=== PATIENT | female | born 1960 | race Caucasian/White ===

== ENCOUNTER 2021-04-30 08:19 | Outpatient (REF) | payer OTHER, SELFPAY ==
[2021-04-30 11:03] LABS: MANUAL DIFF FLAG NO
[2021-04-30 11:06] LABS: Basophils Percent Auto 0.6 % (0-2); Eosinophils Absolute Auto 0.1 X10*3/uL (0.0-0.4); Eosinophils Percent Auto 2.6 % (0-4); Hemoglobin 13.1 g/dl (12.0-16.0); Imm Gran Abs Auto 0.01 X10*3/uL (0.00-0.03); Imm Gran Pct Auto 0.2 % (0.0-0.4); Lymphocytes Absolute Auto 1.8 X10*3/uL (1.2-4.9); Lymphocytes Percent Auto 35.3 % (20-40); Mean Corpuscular HGB Conc 34.5 g/dl (31.0-35.0); Mean Corpuscular Hemoglobin 30.1 pg (27.0-33.0); Mean Corpuscular Volume 87.4 fL (80-98); Mean Platelet Volume 10.4 fL (9.4-12.3); Monocytes Absolute Auto 0.5 X10*3/uL (0.1-1.2); Monocytes Percent Auto 9.2 % (2-11); Neutrophils Absolute Auto 2.6 X10*3/uL (2.0-8.3); Neutrophils Percent Auto 52.1 % (45-73); Platelet Count 220 X10*3/uL (160-400); Red Blood Count 4.35 X10*6/uL (4.20-5.50); Red Cell Distribution Width 12.3 % (11.0-16.0)
[2021-04-30 11:57] LABS: Alanine Aminotransferase 20 U/L (0-31); Albumin Level 4.2 g/dL (3.5-5.0); Alkaline Phosphatase 71 U/L (39-117); Anion Gap 11 (12-20); Aspartate Amino Transferase 17 U/L (5-31); Bilirubin Total 0.7 mg/dL (0.0-1.0); Blood Urea Nitrogen 12 mg/dL (9-16); Carbon Dioxide 28 mmol/L (22-29); Chloride 104 mmol/L (96-108); Cholesterol 235 mg/dL; Estimated Glomerular Filt Rate > 60; Glucose Fasting 89 mg/dL (60-99); HDL Cholesterol 80 mg/dL; LDL Cholesterol Calculated 143 mg/dl; Potassium 3.9 mmol/L (3.3-5.1); Sodium 139 mmol/L (135-145); Total Protein 6.1 g/dL (6.5-8.0); Triglycerides 63 mg/dL
[2021-04-30 12:21] LABS: Thyroid Stimulating Hormone 1.38 uIU/mL (0.32-4.0); Vitamin D 25-OH Total 56.6 ng/mL (>30)
== END 2021-04-30 08:20 | disposition home or self-care (01) ==
LOC: HO.MANLDS 08:19
PROVIDERS: PCP Internal Medicine; Visit Provider Internal Medicine
DX: Z00.00 Encounter for general adult medical examination without abnormal findings (principal)
CPT/HCPCS: 36415; 80053; 80061; 82306; 84443; 85025

== ENCOUNTER 2022-08-21 08:43 | Outpatient (REF) | payer OTHER, SELFPAY ==
[2022-08-21 11:11] LABS: MANUAL DIFF FLAG NO
[2022-08-21 11:28] LABS: Basophils Percent Auto 0.6 % (0-2); Eosinophils Absolute Auto 0.2 X10*3/uL (0.0-0.4); Eosinophils Percent Auto 3.2 % (0-4); Hematocrit 37.2 % (37.0-47.0); Hemoglobin 12.9 g/dl (12.0-16.0); Imm Gran Abs Auto 0.01 X10*3/uL (0.00-0.03); Imm Gran Pct Auto 0.2 % (0.0-0.4); Lymphocytes Absolute Auto 1.7 X10*3/uL (1.2-4.9); Mean Corpuscular HGB Conc 34.7 g/dl (31.0-35.0); Mean Corpuscular Hemoglobin 29.4 pg (27.0-33.0); Mean Corpuscular Volume 84.7 fL (80.0-98.0); Monocytes Absolute Auto 0.5 X10*3/uL (0.1-1.2); Monocytes Percent Auto 10.4 % (2-11); Neutrophils Absolute Auto 2.3 x10*3/uL (2.0-8.3); Neutrophils Percent Auto 48.6 % (45-73); Platelet Count 267 X10*3/uL (160-400); Red Blood Count 4.39 X10*6/uL (4.20-5.50); Red Cell Distribution Width 11.9 % (11.0-16.0); White Blood Count 4.7 X10*3/uL (4.8-10.8)
[2022-08-21 11:53] LABS: Alanine Aminotransferase 20 U/L (0-31); Albumin Level 4.2 g/dL (3.5-5.0); Alkaline Phosphatase 68 U/L (39-117); Anion Gap 15 (12-20); Aspartate Amino Transferase 17 U/L (5-31); Bilirubin Total 0.4 mg/dL (0.0-1.0); Blood Urea Nitrogen 10 mg/dL (9-16); Calcium 9.4 mg/dL (8.4-10.2); Carbon Dioxide 27 mmol/L (22-29); Chloride 100 mmol/L (96-108); Cholesterol 227 mg/dL; Estimated Glomerular Filt Rate > 60; Glucose Random 92 mg/dL (60-115); HDL Cholesterol 66 mg/dL; LDL Cholesterol Calculated 147 mg/dl; Sodium 138 mmol/L (135-145); Total Protein 6.8 g/dL (6.5-8.0); Triglycerides 73 mg/dL
[2022-08-21 12:00] LABS: Thyroid Stimulating Hormone 1.45 uIU/mL (0.32-4.0)
[2022-08-21 12:03] LABS: Ferritin 212 ng/mL (10-250); T4 Thyroxine 7.6 ug/dL (4.5-12.0)
== END 2022-08-21 08:44 | disposition home or self-care (01) ==
LOC: HO.MANLDS 08:43
PROVIDERS: Dermatology; Visit Provider Internal Medicine
DX: D22.9 Melanocytic nevi, unspecified (principal); L65.0 Telogen effluvium; L21.8 Other seborrheic dermatitis; K13.0 Diseases of lips; L82.1 Other seborrheic keratosis
CPT/HCPCS: 36415; 80053; 80061; 82306; 82728; 84436; 84443; 85025

== ENCOUNTER 2022-08-28 15:14 | Outpatient (REF) | payer OTHER, SELFPAY ==
[2022-08-28 18:25] LABS: Alanine Aminotransferase 19 U/L (0-31); Albumin Level 4.4 g/dL (3.5-5.0); Alkaline Phosphatase 76 U/L (39-117); Amylase 66 U/L (28-100); Anion Gap 17 (12-20); Aspartate Amino Transferase 19 U/L (5-31); Bilirubin Total 0.4 mg/dL (0.0-1.0); Blood Urea Nitrogen 10 mg/dL (9-16); C Reactive Protein 0.41 mg/dL (< or = 0.50); Calcium 9.8 mg/dL (8.4-10.2); Carbon Dioxide 26 mmol/L (22-29); Chloride 99 mmol/L (96-108); Estimated Glomerular Filt Rate > 60; Gamma Glutamyl Transpeptidase 22 U/L (7-33); Glucose Random 82 mg/dL (60-115); Lipase 26 U/L (8-78); Potassium 3.8 mmol/L (3.3-5.1); Sodium 138 mmol/L (135-145); Total Protein 7.1 g/dL (6.5-8.0)
[2022-08-28 18:53] LABS: Erythrocyte Sedimentation Rate 18 MM/HR (0-20)
== END 2022-08-28 15:15 | disposition home or self-care (01) ==
LOC: HO.MANLDS 15:14
PROVIDERS: Visit Provider Physician Assistant
DX: R10.0 Acute abdomen (principal)
CPT/HCPCS: 36415; 80053; 82150; 82977; 83690; 85652; 86140

== ENCOUNTER 2024-03-08 08:44 | Outpatient (REF) | payer OTHER, SELFPAY ==
[2024-03-08 13:15] LABS: MANUAL DIFF FLAG NO
[2024-03-08 13:51] LABS: Basophils Percent Auto 0.4 % (0-2); Eosinophils Percent Auto 0.1 % (0-4); Hematocrit 39.2 % (37.0-47.0); Hemoglobin 13.6 g/dl (12.0-16.0); Imm Gran Abs Auto 0.03 X10*3/uL (0.00-0.03); Imm Gran Pct Auto 0.4 % (0.0-0.4); Lymphocytes Absolute Auto 1.3 X10*3/uL (1.2-4.9); Lymphocytes Percent Auto 16.6 % (20-40); Mean Corpuscular HGB Conc 34.7 g/dl (31.0-35.0); Mean Corpuscular Hemoglobin 29.8 pg (27.0-33.0); Mean Platelet Volume 10.2 fL (9.4-12.3); Monocytes Absolute Auto 0.4 X10*3/uL (0.1-1.2); Monocytes Percent Auto 5.4 % (2-11); Neutrophils Absolute Auto 6.2 x10*3/uL (2.0-8.3); Neutrophils Percent Auto 77.1 % (45-73); Platelet Count 260 X10*3/uL (160-400); Red Blood Count 4.56 X10*6/uL (4.20-5.50); Red Cell Distribution Width 12.6 % (11.0-16.0); White Blood Count 8.1 X10*3/uL (4.8-10.8)
[2024-03-08 14:09] LABS: Alanine Aminotransferase 23 U/L (0-31); Albumin Level 4.3 g/dL (3.5-5.0); Alkaline Phosphatase 70 U/L (39-117); Anion Gap 12 (12-20); Aspartate Amino Transferase 18 U/L (5-31); Bilirubin Total 0.3 mg/dL (0.0-1.0); Blood Urea Nitrogen 18 mg/dL (9-16); Calcium 9.6 mg/dL (8.4-10.2); Carbon Dioxide 27 mmol/L (22-29); Chloride 102 mmol/L (96-108); Cholesterol 245 mg/dL (<200); Estimated Glomerular Filt Rate > 60; Glucose Random 94 mg/dL (60-115); HDL Cholesterol 80 mg/dL (>40); LDL Cholesterol Calculated 153 mg/dL (<100); Potassium 3.9 mmol/L (3.3-5.1); Sodium 137 mmol/L (135-145); Total Protein 7.5 g/dL (6.5-8.0); Triglycerides 61 mg/dL (<150)
[2024-03-08 14:26] LABS: Vitamin D 25-OH Total 77.2 ng/mL (>30)
== END 2024-03-08 08:45 | disposition home or self-care (01) ==
LOC: HO.MANLDS 08:44
PROVIDERS: Visit Provider Physician Assistant
DX: Z00.00 Encounter for general adult medical examination without abnormal findings (principal); Z13.6 Encounter for screening for cardiovascular disorders; E55.9 Vitamin D deficiency, unspecified
CPT/HCPCS: 36415; 80053; 80061; 82306; 85025

== ENCOUNTER 2025-10-08 08:40 | Outpatient (REF) | payer OTHER, SELFPAY ==
--- OUTSIDE RECORDS SUMMARY | 2025-10-08 09:02 | XMS_ITS | Encounter Summary ---
Author Organization [facility] Address [address] [place] [address] Phone Care Team Providers Care Street Car Mechanic Name Role Phone Marvin Henderson MD Unavailable [phone] Wilman Angel DO Primary Care Provider [phone] Encounter Details Date Type Department Care Team (Late st Contact Info) Description 07/11/2024 Procedure Pass [facility] Endoscopy Admitting Dept Virtual Department 30 [place] [address] Social History Tobacco Use Types Packs/Day Years Used Date Smoking Tobacco: Former Cigarettes Q uit: 02/10/1983 Smokeless Tobacco: Never Alcohol Use Standard Drinks/Week Comments Yes 0 (1 standard drink = 0.6 oz pur e alcohol) 1-2/week, hard cider at most Education Answer Date Recorded Are you interested in more education? Not on perico e 03/11/2023 Are you concerned about learning? Not on file 03/11/2023 No 03/11/2023 No 03/11/2023 Digital Access Answer Date Recorded No 04/11/2023 No 04/11/2023 Reliable internet access at home? Not on file 04/11/2023 Device with a working camera? Not on file Intimate Partner Violence Answer Date R ecorded Are you denied basic needs s uch as food, clothing, or medical care? No 07/11/2024 In the past 12 months have y ou been in a relationship with a person who hurts, threatens, or tries to control you? No 07/11/2024 Are you denied basic needs s uch as food, clothing, or medical care? No 07/11/2024 In the past 12 months have y ou been in a relationship with a person who hurts, threatens, or tries to control you? 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 It is not the complete legal health record.[facility]
--- OUTSIDE RECORDS SUMMARY | 2025-10-08 09:03 | XMS_ITS | Encounter Summary ---
Author Organization [facility] Address [address] [place] [address] [place] [address] Phone Care Team Providers Care Hand Stoner Name Role Phone Wilman Angel DO Unavailable Enzo Alfaro MD Unavailable Marvin Henderson MD Unavailable Irving Whiteside MD Unavailable Arlene Malik INVESTIGATION DIVISION SERGEANT Unavailable Enrico Nguyen MD Unavailable [phone] Boston Crabtree INVESTIGATION DIVISION SERGEANT Unavailable ChloeChel stout INVESTIGATION DIVISION SERGEANT Unavailable Trey Ruiz MD Unavailable Wilman Liang MD Unavailable [phone] Wilman Angel DO Primary Care Provider [phone] Encounter Details Date Type Department Care Team (Latest Contact Info) Description 02/28/2019 Transcribe Orders Virtual Department 30 [place] [address] Danita Nichols, SKYLER [address] [place], [place] [id number] Osteopenia, unspecified location (Primary Dx) Social History Tobacco Use Types Packs/Day Years Used Date Smoking Tobacco: Former Cigarettes Q uit: 02/10/1983 Smokeless Tobacco: Never Alcohol Use Standard Drinks/Week Comments Yes 0 (1 standard drink = 0.6 oz pur e alcohol) 1-2/week Comments Unknown Sex and Gender Information Value Date Recorded Sex Assigned at Female 04/25/2025 8:20 PM EDT Legal Sex Female 5:42 PM EST Gender Identity Female 04/25/2025 8:20 PM EDT Sexual Orientation Not on file documented as of this encounter Plan of Treatment Not on file documented as of this encounter Results * BD DXA AXIAL (SPINE) WITH HIP (05/10/2019 3:48 PM EDT) Anatomical Region Laterality Modality Bone Density Bone Density 05/10/2019 4:17 PM EDT Impressions 05/10/2019 4:20 PM EDT Osteopenia at all 3 measured sites POS -[id number] Narrative 05/10/2019 4:20 PM EDT This is a 59-year-old postmenopausal female who describes no perceived height loss. No history of steroid use, hormone therapy or calcium supplementation. This is our baseline exam. Evaluation of the lumbar spine and hips was performed and felt to be technically adequate. Total bone mineral density in the L1-L4 vertebral bodies was calculated at 0.906 gm/cm2 with a T score of -1.3, and a Z-score of 0.0. This falls within the WHO classification of osteopenia. Total bone mineral density in the right proximal femur was calculated at 0.813 gm/cm2 with a T-score of -1.1, and a Z-score of -0.8. This falls within the WHO classification of osteopenia. Total bone mineral density in the left proximal femur was calculated at 0.797 gm/cm2 with a T-score of -1.2, and a Z-score of -0.3. This falls within the WHO classification of osteopenia. Procedure Note Jignesh Brandt MD - 05/10/2019 This is a 59-year-old postmenopausal female who describes noperceived height loss. No history of steroid use, hormone therapy or calcium supplementation. This is our baseline exam. Evaluation of the lumbar spine and hips was performed and felt to betechnically adequate. Total bone mineral density in the L1-L4 vertebral bodies was calculated at0.906 gm/cm2 with a T score of -1.3, and a Z-score of 0.0. This fallswithin the WHO classification of osteopenia. Total bone mineral density in the right proximal femur was calculated at0.813 gm/cm2 with a T-score of -1.1, and a Z-score of -0.8. This fallswithin the WHO classification of osteopenia. Total bone mineral density in the left proximal femur was calculated at0.797 gm/cm2 with a T-score of -1.2, and a Z-score of -0.3. This fallswithin the WHO classification of osteopenia. IMPRESSION: Osteopenia at all 3 measured sites POS -[id number] Danita Nichols CEPHALOMETRIC TECHNICIAN IMG BD BONE DENSITY DEXA Fi nal Result documented in this encounter Visit Diagnoses Diagnosis Osteopenia, unspecified location- Primary Osteopenia, unspecified location documented in this encounter Care Teams Hand Stoner Relationship Specialty Start Date End Date Wilman Angel DO [address] [place] [address] PCP - General Internal Medicine 09/09/17 Wilman Angel DO [address] [place] [address] [email or web address] Historical LMR Provider 08/30/17 11/22/21 Enzo Alfaro MD [address] [place] [address] Historical LMR Provider 08/30/17 11/22/21 Marvin Henderson MD [address] [place] [address] Historical LMR Provider 08/30/17 Irving Whiteside MD [address] [address] [email or web address] Historical LMR Provider 08/30/17 11/22/21 Arlene Malik NP [address] [place] [address] [email or web address] Historical LMR Provider 08/30/17 2 Enrico Nguyen MD [address] [address] [email or web address] Historical LMR Provider 08/30/17 11/22/21 Boston Crabtree NP [address] [place] [phone] Historical LMR Provider 08/30/17 2 Chel Jimenez NP [address] [place] [address] Historical LMR Provider 08/30/17 2 Trey Ruiz MD [address] [place] [address] Historical LMR Provider 08/30/17 2 Wilman Liang MD [address] [place] [address] [email or web address] Historical LMR Provider 08/30/17 11/22/21 documented as of this encounter Additional Source Comments The information contained in this document represents components of the legal health record. It is not the complete legal health record.[facility]
--- OUTSIDE RECORDS SUMMARY | 2025-10-08 09:03 | XMS_ITS | Encounter Summary ---
Author Organization [facility] Address [address] [place] [address] Phone Care Team Providers Care Hydraulic Punch Press Operator Name Role Phone Marvin Henderson MD Unavailable [phone] Wilman Angel DO Primary Care Provider Encounter Details Date Type Department Care Team (Late st Contact Info) Description 09/27/2024 Ancillary Orders [facility], X-Ray - [address] [address] Nicky Godoy PA [address] [facility] [place] [address] [place] [address] Acute bronchitis, unspecified organism (Primary Dx) Social History Tobacco Use Types [...] 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 In particular, no evidence of pneumonia. Narrative 09/27/2024 11:37 AM EST XR CHEST PA AND LATERAL 2 VIEWS Referring clinician's provided indication for this examination in [facility]: Cough COMPARISON: Similar studies are unavailable for comparison at this time. FINDINGS: Devices/Tubes/Lines: Loop recorder. Reported mastectomy with reconstruction, surgical clips. Upper abdominal surgical clips. Lungs: Normal. The lungs are clear. No focal consolidation or pulmonary edema. Pleura: Normal. No pleural effusion or pneumothorax. Heart/Mediastinum: Normal heart and mediastinum. Bones/Soft Tissues: Normal. No significant skeletal abnormality. Procedure Note Connie Trejo MD - 09/27/2024 XR CHEST PA AND LATERAL 2 VIEWS Referring clinician's provided indication for this examination in [facility]:Cough COMPARISON: Similar studies are unavailable for comparison at this time. FINDINGS: Devices/Tubes/Lines: Loop recorder. Reported mastectomy withreconstruction, surgical clips. Upper abdominal surgical clips. Lungs: Normal. The lungs are clear. No focal consolidation or pulmonaryedema. Pleura: Normal. No pleural effusion or pneumothorax. Heart/Mediastinum: Normal heart and mediastinum. Bones/Soft Tissues: Normal. No significant skeletal abnormality. IMPRESSION: No acute cardiopulmonary abnormality. In particular, no evidence ofpneumonia. Nicky FERNANDEZ IMG XR CHEST Final Resul t documented in this encounter Visit Diagnoses Diagnosis Acute bronchitis, unspecified organism- Primary Acute bronchitis, unspecified organism documented in this encounter Care Teams Hydraulic Punch Press Operator Relationship Specialty Start Date End Date Wilman Angel DO [address] [place] [address] PCP - General Internal Medicine 09/09/17 Marvin Henderson MD [address] [address] Historical LMR Provider 08/30/17 documented as of this encounter Additional Source Comments The information contained in this document represents components of the legal health record. It is not the complete legal health record.[facility]
--- OUTSIDE RECORDS SUMMARY | 2025-10-08 09:03 | XMS_ITS | Encounter Summary ---
Author Organization [facility] Address [address] [place] [address] Phone Care Team Providers Care Computer Support Analyst Name Role Phone Marvin Henderson MD Unavailable [phone] Wilman Angel DO Primary Care Provider [phone] Encounter Details Date Type Department Care Team (Latest Contact Info) Description 05/09/2025 Transcribe Orders Virtual Department 30 [place] [address] Nicky Godoy PA 6 [facility] [place] [address] Radiculopathy, cervical region (Primary Dx) Social History Tobacco Use Types [...] on file 03/11/2023 No 03/11/2023 No 03/11/2023 Food Answer Date Recorded Within the past 6 months we worried whether our food would run out before we got money to buy more. Never True 04/25/2025 Within the past 6 months the food we bought just didn't last and we didn't have enough money to get more. Never True Residential Stability Answer Date Recor ded What is your housing situation today? I have uzair callejas 04/25/2025 How many times have you move d in the past 12 months? Zero (I did not move) 04/25/2025 Paying for Meds Answer Date Recorded Do you have trouble paying for medicines? No 04/25/2025 Paying Utility Bills Answer Date Record ed Do you have trouble paying your heating or elect ricity bill? No 04/25/2025 Transportation Answer Date Recorded Has the lack of transportati on kept you from medical appointments or from getting medications? No 04/25/2025 Digital Access Answer Date Recorded No 04/25/2025 Yes 04/25/2025 Do you have reliable internet access at home? Ye s 04/25/2025 Do you have a device (e.g., phone, tablet, computer) with a working camera? Yes 04/25/2025 Intimate Partner Violence Answer Date R ecorded Are you denied basic needs s uch as food, clothing, or medical care? No 04/25/2025 In the past 12 months have y ou been in a relationship with a person who hurts, threatens, or tries to control you? No 04/25/2025 Are you denied basic needs s uch as food, clothing, or medical care? No 04/25/2025 In the past 12 months have y ou been in a relationship with a person who hurts, threatens, or tries to control you? 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 No acute osseous abnormality. Narrative 05/17/2025 9:13 AM EDT XR CERVICAL SPINE 2-3 VIEWS Referring clinician's provided indication for this examination in [facility]: Outside Radiology Order; cervical radiculopathy COMPARISON: None FINDINGS: Moderate multilevel disc height loss with endplate osteophytes. Multilevel facet osteoarthrosis. Minimal C7-T1 anterolisthesis. No acute fracture or compression fracture. Procedure Note Malena Gordon MD - 05/17/2025 XR CERVICAL SPINE 2-3 VIEWS Referring clinician's provided indication for this examination in Epic:Outside Radiology Order; cervical radiculopathy COMPARISON: None FINDINGS: Moderate multilevel disc height loss with endplate osteophytes. Multilevelfacet osteoarthrosis. Minimal C7-T1 anterolisthesis. No acute fracture orcompression fracture. IMPRESSION: Degenerative changes. No acute osseous abnormality. Nicky FERNANDEZ IMG XR SPINE Final Resul t documented in this encounter Visit Diagnoses Diagnosis Radiculopathy, cervical region- Primary Brachial neuritis or radiculitis nos Radiculopathy, cervical region Brachial neuritis or radiculitis nos documented in this encounter Care Teams Computer Support Analyst Relationship Specialty Start Date End Date Wilman Angel DO [address] [place] [address] PCP - General Internal Medicine 09/09/17 Marvin Henderson MD [address] [address] Historical LMR Provider 08/30/17 documented as of this encounter Additional Source Comments The information contained in this document represents components of the legal health record. It is not the complete legal health record.[facility]
--- OUTSIDE RECORDS SUMMARY | 2025-10-08 09:04 | XMS_ITS | Encounter Summary ---
Author Organization [facility] Address [address] [place] [address] Phone Care Team Providers Care Open Hearth Door Liner Name Role Phone Marvin Henderson MD Unavailable [phone] Wilman Angel DO Primary Care Provider [phone] Reason for Referral * MRI/CAT Scan - Closed Specialty Diagnoses / Procedures Referred By Sukumar live Referred To Contact Radiology Diagnoses Radiculopathy, cervical region Paresthesia Procedures MRI Cervical Spine MRI Cervical Spine Nicky Godoy PA [address] [facility] [place] [address] Phone: tel: fax: Referral ID Status Reason Start Date Expiration Date Visits Re quested Visits Authorized [id number] Closed 05/21/2025 05/21/2026 1 1 Encounter Details Date Type Department Care Team (Late st Contact Info) Description 05/21/2025 Ancillary Orders Virtual Department 30 [place] [address] Nicky Godoy PA 6 [facility] [place] [address] Radiculopathy, cervical region (Primary Dx); Paresthesia Social History Tobacco Use Types Packs/Day Years [...] your housing situation today? 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 Narrative 06/14/2025 10:22 AM EDT MRI CERVICAL SPINE (NEURO) FOCUS WITHOUT CONTRAST Referring clinician's provided indication for this examination in Epic: Outside Radiology Order; radiculopathy TECHNIQUE: MRI CERVICAL SPINE (NEURO) FOCUS WITHOUT CONTRAST Multi-sequence, multi-planar MRI of the cervical spine was performed without intravenous contrast. COMPARISON: XR CERVICAL SPINE 2-3 VIEWS FINDINGS: CERVICAL SPINE: Alignment and Vertebrae: Reversal of normal cervical lordosis centered at C4-C5. Vertebral body height is maintained. Marrow: No bone marrow replacing lesion. Discs and Endplates: Mild multilevel disc height with disc desiccation, especially at C4-C5 and C5-C6, and C6-C7. Spinal Cord: No spinal cord compression or signal abnormality. Soft Tissue: No prevertebral edema. Findings by level: C2-C3: No spinal or foraminal stenosis. C3-C4: Mild disc bulge with uncovertebral arthropathy contributing to mild RIGHT and moderate LEFT foraminal stenosis. C4-C5: Disc bulge with uncovertebral arthropathy contributing to moderate bilateral foraminal stenosis, worse on the LEFT. C5-C6: Mild disc bulge with uncovertebral arthropathy contributing to mild bilateral foraminal stenosis. C6-C7: Mild disc bulge with uncovertebral arthropathy, mild bilateral foraminal stenosis. C7-T1: No significant spinal or foraminal stenosis. Procedure Note Navdeep Olmstead MD, PhD - 06/14/2025 MRI CERVICAL SPINE (NEURO) FOCUS WITHOUT CONTRAST Referring clinician's provided indication for this examination in Epic:Outside Radiology Order; radiculopathy TECHNIQUE: MRI CERVICAL SPINE (NEURO) FOCUS WITHOUT CONTRAST Multi-sequence, multi-planar MRI of the cervical spine was performedwithout intravenous contrast. COMPARISON: XR CERVICAL SPINE 2-3 VIEWS FINDINGS: CERVICAL SPINE: Alignment and Vertebrae: Reversal of normal cervical lordosis centered atC4-C5. Vertebral body height is maintained. Marrow: No bone marrow replacing lesion. Discs and Endplates: Mild multilevel disc height with disc desiccation,especially at C4-C5 and C5-C6, and C6-C7. Spinal Cord: No spinal cord compression or signal abnormality. Soft Tissue: No prevertebral edema. Findings by level: C2-C3: No spinal or foraminal stenosis. C3-C4: Mild disc bulge with uncovertebral arthropathy contributing to mildRIGHT and moderate LEFT foraminal stenosis. C4-C5: Disc bulge with uncovertebral arthropathy contributing to moderatebilateral foraminal stenosis, worse on the LEFT. C5-C6: Mild disc bulge with uncovertebral arthropathy contributing to mildbilateral foraminal stenosis. C6-C7: Mild disc bulge with uncovertebral arthropathy, mild bilateralforaminal stenosis. C7-T1: No significant spinal or foraminal stenosis. IMPRESSION: Multilevel degenerative changes as detailed above, with [id number] foraminal stenosis, most prominent at C4-C5, withmoderate bilateral foraminal stenosis, worse on the LEFT. Nicky FERNANDEZ IMG MR XSPECIALTY Final Res ult documented in this encounter Visit Diagnoses Diagnosis Radiculopathy, cervical region- Primary Brachial neuritis or radiculitis nos Paresthesia Disturbance of skin sensation Radiculopathy, cervical region Brachial neuritis or radiculitis nos Paresthesia Disturbance of skin sensation documented in this encounter Care Teams Open Hearth Door Liner Relationship Specialty Start Date End Date Wilman Angel DO [address] [place] [address] PCP - General Internal Medicine 09/09/17 Marvin Henderson MD [address] [place] [address] Historical LMR Provider 08/30/17 documented as of this encounter Additional Source Comments The information contained in this document represents components of the legal health record. It is not the complete legal health record.[facility]
--- OUTSIDE RECORDS SUMMARY | 2025-10-08 09:04 | XMS_ITS | Encounter Summary ---
Author Organization [facility] Address [address] [place] [address] Phone Care Team Providers Care Director Rehabilitation Program Name Role Phone Wilman Angel DO Unavailable Enzo Alfaro MD Unavailable Marvin Henderson MD Unavailable Irving Whiteside MD Unavailable Arlene Malik FRUIT OR NUT FARMWORKER Unavailable Enrico Nguyen MD Unavailable [phone] Boston Crabtree FRUIT OR NUT FARMWORKER Unavailable [phone] ChattanoogaChel stout FRUIT OR NUT FARMWORKER Unavailable Trey Ruiz MD Unavailable Wilman Liang MD Unavailable [phone] Wilman Angel DO Primary Care Provider [phone] Encounter Details Date Type Department Care Team (Late st Contact Info) Description 03/20/2019 Ancillary [facility] [address] [place] [address] Azar Coates MD [address] [place] [address] [place] [address] [email or web address] Social History Tobacco Use Types Packs/Day Years [...] on filedocumented in this encounter Care Teams Director Rehabilitation Program Relationship Specialty Start Date End Date Wilman Angel DO [address] [place] [address] PCP - General Internal Medicine 09/09/17 Wilman Angel DO [address] [place] [address] Historical LMR Provider 08/30/17 11/22/21 Enzo Alfaro MD [address] [place] [address] Historical LMR Provider 08/30/17 11/22/21 Marvin Henderson MD [address] [place] [address] Historical LMR Provider 08/30/17 Irving Whiteside MD [address] [place] [address] Historical LMR Provider 08/30/17 11/22/21 Arlene Malik NP [address] [place] [address] [email or web address] Historical LMR Provider 08/30/17 2 Enrico Nguyen MD 22 [facility] [address] [place] [address] [email or web address] Historical LMR Provider 08/30/17 11/22/21 Boston Crabtree NP [address] [place] [address] [address] [place] [phone] Historical LMR Provider 08/30/17 2 Chel Jimenez NP [address] [place] [address] Historical LMR Provider 08/30/17 2 Trey Ruiz MD [address] [place] [address] Historical LMR Provider 08/30/17 2 Wilman Liang MD [address] [place] [address] [email or web address] Historical LMR Provider 08/30/17 11/22/21 documented as of this encounter Additional Source Comments The information contained in this document represents components of the legal health record. It is not the complete legal health record.[facility]
--- OUTSIDE RECORDS SUMMARY | 2025-10-08 09:04 | XMS_ITS | Encounter Summary ---
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 It is not the complete legal health record.[facility]
--- OUTSIDE RECORDS SUMMARY | 2025-10-08 09:05 | XMS_ITS | Encounter Summary ---
Author Organization [facility] Address [address] [place] [address] Phone Care Team Providers Care Pewter Finisher Name Role Phone Wilman Angel DO Unavailable Enzo Alfaro MD Unavailable Marvin Henderson MD Unavailable Irving Whiteside MD Unavailable Arlene Malik LABEL DESIGNER Unavailable Enrico Nguyen MD Unavailable [phone] Boston Crabtree LABEL DESIGNER Unavailable Lummi IslandChel stout LABEL DESIGNER Unavailable Trey Ruiz MD Unavailable Wilman Liang MD Unavailable [phone] Wilman Angel DO Primary Care Provider [phone] Encounter Details Date Type Department Care Team (Late st Contact Info) Description 01/18/2019 Ancillary [facility] [address] [place] [address] Azar Coates MD [address] [place] [address] [place] [address] [email or web address] Social History Tobacco Use Types Packs/Day Years [...] on filedocumented in this encounter Care Teams Pewter Finisher Relationship Specialty Start Date End Date Wilman Angel DO 179 [place] [address] PCP - General Internal Medicine 09/09/17 Wilman Angel DO 179 [place] [address] Historical LMR Provider 08/30/17 11/22/21 Enzo Alfaro MD [address] [place] [address] Historical LMR Provider 08/30/17 11/22/21 Marvin Henderson MD [address] [place] [address] Historical LMR Provider 08/30/17 Irving Whiteside MD [address] [place] [address] Historical LMR Provider 08/30/17 11/22/21 Arlene Malik NP [address] [place] [address] [email or web address] Historical LMR Provider 08/30/17 2 Enrico Nguyen MD 22 [facility] [address] [place] [address] [email or web address] Historical LMR Provider 08/30/17 11/22/21 Boston Crabtree NP [address] [place] [address] [address] [place] [phone] Historical LMR Provider 08/30/17 2 Chel Jimenez NP [address] [place] [address] Historical LMR Provider 08/30/17 2 Trey Ruiz MD [address] [place] [address] Historical LMR Provider 08/30/17 2 Wilman Liang MD [address] [place] [address] [email or web address] Historical LMR Provider 08/30/17 11/22/21 documented as of this encounter Additional Source Comments The information contained in this document represents components of the legal health record. It is not the complete legal health record.[facility]
--- OUTSIDE RECORDS SUMMARY | 2025-10-08 09:05 | XMS_ITS | Encounter Summary ---
Author Organization [facility] Address [address] [place] [address] Phone Care Team Providers Care Potato Chip Sacking Machine Operator Name Role Phone Wilman Angel DO Unavailable Enzo Alfaro MD Unavailable Marvin Henderson MD Unavailable [phone] Irving Whiteside MD Unavailable Arlene Malik WOODS SUPERINTENDENT Unavailable Enrico Nguyen MD Unavailable [phone] Boston Crabtree WOODS SUPERINTENDENT Unavailable MaplecrestChel stout WOODS SUPERINTENDENT Unavailable Trey Ruiz MD Unavailable Wilman Liang MD Unavailable [phone] Wilman Angel DO Primary Care Provider [phone] Encounter Details Date Type Department Care Team (Latest Contact Info) Description 03/14/2019 Transcribe Orders [address] [address] Heather Obrein PA-C [address] [place] [address] [email or web address] Personal history of arthritis (Primary Dx); Routine general medical examination at a health care facility Social History Tobacco Use Types Packs/Day Years [...] documented as of this encounter Results * 25-OH vitamin D (03/14/2019 8:58 AM EDT) 25 OH VIT D (TOTAL) 46 30 - 60 ng/mL [facility] Blood 03/14/2019 8:58 AM EDT 03/14/2019 9:[address] [facility] REBECCABere LAB BLOOD BKR ORDERABLES Fin al Result Performing Organization Address City/[facility]/ZIP Co de Phone Number [address] [address] * Hepatitis C antibody, qualitative (03/14/2019 8:58 AM EDT) Pathologist [facility] HCV Negative Negative [facility] Comment: This is a screening test and should be confirmed with molecular testing Blood 03/14/2019 8:58 AM EDT 03/14/2019 9:[address] [facility] REBECCA LAB BLOOD BKR ORDERABLES Fin al Result [address] [address] * (ABNORMAL) Lipid panel (03/14/2019 8:58 AM EDT) HDL 68 mg/dL [facility] Comment: Interpretation <40 mg/dL: Low HDL cholesterol (major risk factor for CHD) Greater than or equal to 60 mg/dL: High HDL cholesterol ( negative risk factor for CHD) HDL - cholesterol is affected by a number of factors, e.g. smoking, excerise, hormones, sex and age. CHOLESTEROL 218 0 - 240 mg/dL [facility] TRIGLYCERIDES 111 30 - 160 mg/dL [facility] LDL 128 50 - 129 mg/dL [facility] Comment: LDL levels in terms of risk for coronary heart disease: <100 mg/dL: Optimal 100-129 mg/dL: Near or above optimal 130-159 mg/dL: Borderline high 160-189 mg/dL: High >190 mg/dL: Very High CARDIAC RISK RATIO 3.2(L) 3.3 - 4.4 C [facility] Blood 03/14/2019 8:58 AM EDT 03/14/2019 9:12 AM EDT February Micah FRIAS LAB BLOOD BKR ORDERABLES Fin al Result Performing Organization Address City/State/[facility] Co de Phone Number [address] [address] * CBC and differential (03/14/2019 8:58 AM EDT) WBC 5.09 3.40 - 11.20 K/uL [facility] RBC 4.64 3.80 - 4.80 M/uL [facility] HGB 14.0 12.0 - 15.0 g/dL [facility] HCT 40.4 36.0 - 46.0 % [facility] PLT 227 130 - 400 K/uL [facility] MCV 87.1 79.0 - 98.0 fL [facility] MCH 30.2 27.0 - 34.8 pg [facility] MCHC 34.7 31.5 - 36.0 g/dL [facility] RDW 12.3 10.8 - 14.6 % [facility] MPV 10.7 9.4 - 12.4 fl [facility] NRBC 0.00 0.00 /100 WBCs [facility] ABSOLUTE NRBC 0.00 0.00 K/uL [facility] DIFF METHOD Auto [facility] NEUTS 52.2 45.30 - 77.70 % [facility] LYMPHS 36.7 12.30 - 39.70 % [facility] MONOS 8.1 4.10 - 12.80 % [facility] EOS 2.2 0 - 7.2 % [facility] BASOS 0.6 0 - 2.80 % [facility] Granulocytes, immature (%) 0.2 0.0 - 0.9 % [facility] ABSOLUTE NEUTS 2.66 1.40 - 7.70 K/uL [facility] ABSOLUTE LYMPHS 1.87 0.60 - 3.20 K/uL [facility] ABSOLUTE MONOS 0.41 0.11 - 0.59 K/uL [facility] ABSOLUTE EOS 0.11 0.01 - 0.50 K/uL [facility] ABSOLUTE BASOS 0.03 0.00 - 0.08 K/uL [facility] Granulocytes, immature 0.01 0.00 - 0.05 K/uL [facility] Blood 03/14/2019 8:58 AM EDT 03/14/2019 9:12 AM EDT February Micah FRIAS LAB BLOOD BKR ORDERABLES Fin al Result [facility] [address] [place], [place] [id number] * Comprehensive metabolic panel (03/14/2019 8:58 AM EDT) SODIUM 140 133 - 146 mmol/L [facility] POTASSIUM 4.3 3.3 - 5.1 mmol/L [facility] CHLORIDE 103 96 - 108 mmol/L [facility] CO2 26 21 - 35 mmol/L [facility] BUN 15 6 - 19 mg/dL [facility] CREATININE 0.80 0.5 - 1.5 mg/dL [facility] GLUCOSE 90 70 - 99 mg/dL [facility] ALBUMIN 4.3 3.9 - 4.8 g/dL [facility] TOTAL PROTEIN 7.2 6.5 - 8.0 g/dL [facility] CALCIUM 9.6 8.4 - 10.3 mg/dL [facility] ALKALINE PHOSPHATASE 64 39 - 117 U/L [facility] TOTAL BILIRUBIN 0.5 0.0 - 1.2 mg/dL [facility] AST 19 0 - 37 U/L [facility] ALT 14 0 - 40 U/L [facility] GLOBULIN 2.9 1 - 4.8 g/dL [facility] EGFR 81 >59 mL/min/1.7 3m2 [facility] Comment:If patient is black, multiply result by 1.159. Estimated glomerular filtration rate calculated using the CKD-EPI equation. ANION GAP 15 10 - 20 mmol/L [facility] Blood 03/14/2019 8:58 AM EDT 03/14/2019 9:12 AM EDT February Micah FRIAS LAB BLOOD BKR ORDERABLES Fin al Result [address] [address] documented in this encounter Visit Diagnoses Diagnosis Personal history of arthritis- Primary Routine general medical examination at a health care facility documented in this encounter Care Teams Potato Chip Sacking Machine Operator Relationship Specialty Start Date End Date Wilman Angel DO [address] [place] [address] PCP - General Internal Medicine 09/09/17 Wilman Angel DO 179 [place] [address] [email or web address] Historical LMR Provider 08/30/17 11/22/21 Enzo Alfaro MD [address] [place] [address] Historical LMR Provider 08/30/17 11/22/21 Marvin Henderson MD [address] [place] [address] Historical LMR Provider 08/30/17 Irving Whiteside MD [address] [place] [address] [place] [address] [email or web address] Historical LMR Provider 08/30/17 11/22/21 Arlene Malik NP [address] [place] [address] [email or web address] Historical LMR Provider 08/30/17 2 Enrico Nguyen MD [address] [address] [email or web address] Historical LMR Provider 08/30/17 11/22/21 Boston Crabtree NP [address] [place] [address] [phone] Historical LMR Provider 08/30/17 2 Chel Jimenez NP [address] [place] [address] Historical LMR Provider 08/30/17 2 Trey Ruiz MD [address] [place] [address] Historical LMR Provider 08/30/17 2 Wilman Liang MD [address] [place] [address] [email or web address] Historical LMR Provider 08/30/17 11/22/21 documented as of this encounter Additional Source Comments The information contained in this document represents components of the legal health record. It is not the complete legal health record.[facility]
--- OUTSIDE RECORDS SUMMARY | 2025-10-08 09:05 | XMS_ITS | Encounter Summary ---
Author Organization [facility] Address [address] [place] [address] Phone Care Team Providers Care Infectious Diseases Physician Name Role Phone Wilman Angel DO Unavailable Enzo Alfaro MD Unavailable Marvin Henderson MD Unavailable Irving Whiteside MD Unavailable Arlene Malik PRODUCT MARKETING ANALYST Unavailable Enrico Nguyen MD Unavailable [phone] Boston Crabtree PRODUCT MARKETING ANALYST Unavailable RoseChel stout PRODUCT MARKETING ANALYST Unavailable Trey Ruiz MD Unavailable Wilman Liang MD Unavailable [phone] Wilman Angel DO Primary Care Provider [phone] Encounter Details Date Type Department Care Team (Late st Contact Info) Description 03/20/2019 Ancillary Orders Non-Invasive Cardiology [address] [place] [address] Azar Coates MD [address] [place] [address] [email or web address] Palpitations Social History Tobacco Use Types Packs/Day Years [...] documented as of this encounter Results * DEVICE CHECK: ILR REMOTE INTERROGATION W/TECH REVIEW (03/20/2019 9:27 AM EDT) Narrative Azar Coates MD - 03/22/2019 5:41 PM EDT Remote 2 month interrogation of implantable loop recorder. 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 Normal device function. Patient to follow-up for continued monitoring every 1 month. Report prepared by Manny Lacey RN us Azar Coates MD CV CARDIAC SERVICES ORDER BRITTANY Final Result documented in this encounter Visit Diagnoses Diagnosis Palpitations Palpitations documented in this encounter Care Teams Infectious Diseases Physician Relationship Specialty Start Date End Date Wilman Angel DO [address] [place] [address] PCP - General Internal Medicine 09/09/17 Wilman Angel DO 179 [place] [address] Historical LMR Provider 08/30/17 11/22/21 Enzo Alfaro MD [address] [place] [address] Historical LMR Provider 08/30/17 11/22/21 Marvin Henderson MD [address] [address] Historical LMR Provider 08/30/17 Irving Whiteside MD [address] [address] Historical LMR Provider 08/30/17 11/22/21 Arlene Malik NP [address] [place] [address] [email or web address] Historical LMR Provider 08/30/17 2 Enrico Nguyen MD [address] [address] Historical LMR Provider 08/30/17 11/22/21 Boston Crabtree NP [address] [place] [address] [phone] Historical LMR Provider 08/30/17 2 Chel Jimenez NP [address] [place] [address] Historical LMR Provider 08/30/17 2 Trey Ruiz MD [address] [place] [address] Historical LMR Provider 08/30/17 2 Wilman Liang MD [address] [place] [address] [email or web address] Historical LMR Provider 08/30/17 11/22/21 documented as of this encounter Additional Source Comments The information contained in this document represents components of the legal health record. It is not the complete legal health record.[facility]
--- OUTSIDE RECORDS SUMMARY | 2025-10-08 09:05 | XMS_ITS | Encounter Summary ---
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 Not on file Not on file documented as of this encounter Plan of Treatment Not on file documented as of this encounter Visit Diagnoses Diagnosis Radiculopathy, cervical region- Primary Brachial neuritis or radiculitis nos documented in this encounter Care Teams Pigskin Trimmer Relationship Specialty Start Date End Date Wilman Angel DO [address] [place] [address] PCP - General Internal Medicine 09/09/17 Marvin Henderson MD [address] [place] [address] Historical LMR Provider 08/30/17 documented as of this encounter Additional Source Comments The information contained in this document represents components of the legal health record. It is not the complete legal health record.[facility]
--- OUTSIDE RECORDS SUMMARY | 2025-10-08 09:05 | XMS_ITS | Encounter Summary ---
Author Organization [facility] Address [address] [place] [address] [place] [address] Phone Care Team Providers Care Lye Bath Operator Name Role Phone Wilman Angel DO Unavailable Enzo Alfaro MD Unavailable Marvin Henderson MD Unavailable Irving Whiteside MD Unavailable Arlene Malik DITCH CLEANER Unavailable [phone] Enrico Nguyen MD Unavailable [phone] Boston Crabtree DITCH CLEANER Unavailable LynchburgChel stout DITCH CLEANER Unavailable Trey Ruiz MD Unavailable Wilman Liang MD Unavailable [phone] Wilman Angel DO Primary Care Provider [phone] Encounter Details Date Type Department Care Team (Late st Contact Info) Description 03/18/2021 Procedure Pass Non-Invasive Cardiology [address] [place] [address] Social History Tobacco Use Types Packs/Day Years [...] on filedocumented in this encounter Care Teams Lye Bath Operator Relationship Specialty Start Date End Date Wilman Angel DO 179 [facility] [place] [address] PCP - General Internal Medicine 09/09/17 Wilman Angel DO 179 [facility] [place] [address] [email or web address] Historical LMR Provider 08/30/17 11/22/21 Enzo Alfaro MD [address] [place] [address] Historical LMR Provider 08/30/17 11/22/21 Marvin Henderson MD [address] [place] [address] Historical LMR Provider 08/30/17 Irving Whiteside MD [address] [place] [address] Historical LMR Provider 08/30/17 11/22/21 Arlene Malik NP [address] [place] [address] [email or web address] Historical LMR Provider 08/30/17 2 Enrico Nguyen MD [address] [place] [address] [email or web address] Historical LMR Provider 08/30/17 11/22/21 Boston Crabtree NP [address] [place] [address] [phone] Historical LMR Provider 08/30/17 2 Chel Jimenez NP [address] [place] [address] Historical LMR Provider 08/30/17 2 Trey Ruiz MD [address] [place] [address] Historical LMR Provider 08/30/17 2 Wilman Liang MD [address] [place] [address] [email or web address] Historical LMR Provider 08/30/17 11/22/21 documented as of this encounter Additional Source Comments The information contained in this document represents components of the legal health record. It is not the complete legal health record.[facility]
--- OUTSIDE RECORDS SUMMARY | 2025-10-08 09:05 | XMS_ITS | Encounter Summary ---
Author Organization [facility] Address [address] [place] [address] Phone Care Team Providers Care Visual And Stock Associate Name Role Phone Wilman Angel DO Unavailable Enzo Alfaro MD Unavailable Marvin Henderson MD Unavailable [phone] Irving Whiteside MD Unavailable Arlene Malik AIRPORT GUIDE Unavailable Enrico Nguyen MD Unavailable [phone] Boston Crabtree AIRPORT GUIDE Unavailable [phone] GlenwoodChel stout AIRPORT GUIDE Unavailable Trey Ruiz MD Unavailable Wilman Liang MD Unavailable [phone] Wilman Angel DO Primary Care Provider [phone] Encounter Details Date Type Department Care Team (Late st Contact Info) Description 01/18/2019 Ancillary Orders Non-Invasive Cardiology [address] [place] [address] Azar Coates MD [address] [place] [address] [email or web address] Palpitations Social History Tobacco Use Types Packs/Day [...] DEVICE CHECK: ILR REMOTE INTERROGATION W/TECH REVIEW (01/18/2019 8:18 AM EST) Narrative Azar Coates MD - 01/19/2019 12:21 PM EST Remote interrogation of implantable loop recorder, since office visit November 17. 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 Patient to follow-up for continued monitoring every 1 month. Report prepared by Manny Lacey RN us Azar Coates MD CV CARDIAC SERVICES ORDER BRITTANY Final Result documented in this encounter Visit Diagnoses Diagnosis Palpitations Palpitations documented in this encounter Care Teams Visual And Stock Associate Relationship Specialty Start Date End Date Wliman Angel DO [address] [place] [address] PCP - General Internal Medicine 09/09/17 Wilman Angel DO 179 [place] [address] Historical LMR Provider 08/30/17 11/22/21 Enzo Alfaro MD [address] [place] [address] Historical LMR Provider 08/30/17 11/22/21 Marvin Henderson MD [address] [address] Historical LMR Provider 08/30/17 Irving Whiteside MD [address] [address] Historical LMR Provider 08/30/17 11/22/21 Arlene Malik NP [address] [place] [address] [email or web address] Historical LMR Provider 08/30/17 2 Enrico Nguyen MD [address] [address] Historical LMR Provider 08/30/17 11/22/21 Boston Crabtree NP [address] [place] [address] [phone] Historical LMR Provider 08/30/17 2 Chel Jimenez NP [address] [place] [address] Historical LMR Provider 08/30/17 2 Trey Ruiz MD [address] [place] [address] Historical LMR Provider 08/30/17 2 Wilman Liang MD [address] [place] [address] [email or web address] Historical LMR Provider 08/30/17 11/22/21 documented as of this encounter Additional Source Comments The information contained in this document represents components of the legal health record. It is not the complete legal health record.[facility]
--- OUTSIDE RECORDS SUMMARY | 2025-10-08 09:06 | XMS_ITS | Clinical Summary ---
Author Organization [facility] Address [address] [place] [address] Phone Care Team Providers Care Monitoring Engineer Name Role Phone Marvin Henderson MD Unavailable [phone] Megan Wills DO Primary Care Provider [phone] Allergies Active Allergy Reactions Criticality Noted Date Comments Buspirone Heart beating fast Medications buPROPion (WELLBUTRIN XL) 300 MG ER 24 hr tablet Orally Once a day Active triamterene-hyd roCHLOROthiazid e (DYAZIDE) 37.5-25 mg per capsule Take 1 capsule by mouth every morning. Active ALPRAZolam (XANAX) 0.5 MG tablet Take 1 tablet by mouth as needed. Active zolpidem (AMBIEN) 10 mg tablet Take 1 tablet by mouth nightly as needed. Active celecoxib (CELEBREX) 100 MG capsule Take 1 capsule by mouth daily. 0 Active clobetasol (CLOBEX) 0.05 % shampoo clobetasol 0.05 % shampoo APPLY TO SCALP 15 MINUTES BEFORE SHOWERING, THEN LATHER AND RINSE OFF Active fluocinonide 0.05 % external solution fluocinonide 0.05 % topical solution APPLY TO AFFECTED AREAS TWO TIMES DAILY FOR UP TO 14 DAYS AT A TIME Active tacrolimus (PROTOPIC) 0.1 % ointment tacrolimus 0.1 % topical ointment APPLY TO AFFECTED AREA TWICE A DAY Active cyclobenzaprine (FLEXERIL) 10 MG tablet 4 Active cholecalciferol (VITAMIN D3) 25 MCG (1,000 unit) tablet Take 1,000 Units by mouth daily. Active multivitamin-mi nerals-lutein (CENTRUM SILVER) Tab Take 1 tablet by mouth daily. Active triamcinolone acetonide 0.1 % cream APPLY TOPICALLY TWICE DAILY TO RASH DIRECTED Active ibandronate (BONIVA) 150 mg tablet TAKE 1 TABLET EVERY MONTH BY ORAL ROUTE FOR 30 DAYS. Active hydrocortisone butyrate 0.1 % Soln APPLY TWICE A DAY TO A SCALP NEEDED Active Active Problems Problem Noted Date Diagnosed Date S/P laparoscopic cholecystectomy 11/11/2022 Status post placement of implantable loop record er 10/31/2018 Assessment & Plan (09/22/2021 3:25 PM EST): Patient would like ILR (implanted in 2017) removed. No significant arrhythmias have been detected, other than occasional SVT when hiking that correlates with patient's symptoms. Leyda, district sales manager, will schedule ILR removal for patient (hopefully prior to 11/15/21, as patient is leaving for [place] for 4 months on that date). Assessment & Plan (10/31/2018 9:43 PM EST): - ILR in place and insertion site healing well. Some residual skin irritation around borders of former dressing for site. No fevers, no tenderness, no drainage from site. She is aware of red flags. Follow up in office on 11/17/18 for further evaluation. Device check can be completed in office at that time. She is also encouraged to go hiking if she can to see if can reproduce her feelings of palpitations prior to follow up with Dr. Henderson. 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 Assessment & Plan (06/29/2019 11:20 AM EDT): Very pleasant 59-year-old female with symptomatic palpitations especially when she hikes. We have not recorded any arrhythmias as of yet. Electrophysiology study also was negative for any inducible atrial or ventricular arrhythmias. She has implantable loop recorder now and we will continue to monitor to see if she has any episodes. No medical therapy for now. We will see her back in 12 months. Assessment & Plan (11/17/2018 3:40 PM EST): Very pleasant 58-year-old female with symptomatic palpitations especially when she hikes. We have not recorded any arrhythmias as of yet. Elective physiology study also was negative for any inducible atrial or ventricular arrhythmias. She has implantable loop recorder now and we will continue to monitor to see if she has any episodes. No medical therapy for now. We will see her back in 6 months. Assessment & Plan (09/05/2018 11:29 AM EDT): 58-year-old female with the recurrent symptomatic episodes of palpitation especially when she is hiking uphill. One episode has been caught on external loop monitor but the QRS morphology is so low is difficult to predict what the mechanics of arrhythmia's. There is suspicion this could be just plain sinus tachycardia or atrial tachycardia though I cannot rule out reentrant SVT. Based on my discussion above I think it might be reasonable to proceed with EP study plus minus ablation or implantable loop recorder if nothing is inducible. I also offered some calcium channel tony or metoprolol as empiric therapy. Patient has done her research and would like to proceed with EP study and ablation plus minus ILR implantation if nothing is inducible. I will schedule for this in the coming future. Assessment & Plan (02/10/2018 1:45 PM EDT): 58-year-old female with the recurrent symptomatic episodes of palpitation especially when she is hiking uphill. One episode has been caught on external loop monitor but the QRS morphology is so low is difficult to predict what the mechanics of arrhythmia's. There is suspicion this could be just plain sinus tachycardia or atrial tachycardia though I cannot rule out reentrant SVT. Based on my discussion above I think it might be reasonable to proceed with EP study plus minus ablation or implantable loop recorder if nothing is inducible. I also offered some calcium channel tony or metoprolol as empiric therapy. Patient will go over the options and let me know. She has any further questions please do not hesitate to give me a call. Resolved Problems Problem Noted Date Diagnosed Date Resolved Date Calculus of gallbladder with out cholecystitis without obstruction 10/19/2022 11/11/2022 Biliary colic 10/19/2022 11/11/2022 Assessment & Plan (10/19/2022 10:44 AM EST): This is a 62-year-old lady who has been having clinical biliary colic secondary to cholelithiasis for over 1 year. The patient recently underwent an ultrasound that showed a 2.5 cm gallstone and several other small gallstones that are the cause of the patient's discomfort. This discomfort is limiting the patient's quality of life. She also has increased risk for change of gallbladder mucosal cells with a sizable gallstone greater than 1 cm in size and her gallstone is 2.5 cm. I discussed these risks with the patient. She is interested in laparoscopic cholecystectomy. Risk benefits and alternatives were discussed with the patient and she would like to proceed. I will order liver function test and baseline preoperative laboratory values which include type and screen CBC electrolytes and liver function test. The patient was told to avoid all heavy lifting greater than 5 to 10 pounds for the first set of 2 weeks and greater than 15 pounds for the second set of 2 weeks to equal a total of 4 weeks of lifting restrictions. I will follow-up with the patient 2 weeks after surgery. 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 Not on file Not on file Last Filed Vital Signs Vital Sign Reading Time Taken Comments Blood Pressure 106/76 05/04/2025 10:50 AM EDT Pulse 89 05/04/2025 10:50 AM EDT Temperature 36.9 C (98.4 F) 05/04/2025 10:50 AM EDT Respiratory Rate 16 05/04/2025 10:50 AM EDT Oxygen Saturation 97% 05/04/2025 10:50 AM EDT Inhaled Oxygen Concentration - - Weight 74.8 kg (165 lb) 06/04/2025 9:56 AM EDT Height 162.6 cm (5' 4 ) 06/04/2025 9:56 AM EDT Body Mass Index 28.32 06/04/2025 9:56 AM EDT Plan of Treatment Health Maintenance Due Date Last Done Comments DEPRESSION SCREENING 1973 HIV ONE-TIME SCREENING (18-65 YEARS) 1979 PAP SMEAR 1982 COLOGUARD 2006 FIT TEST 2006 FOBT 2006 SIGMOIDOSCOPY 2006 VIRTUAL COLONOSCOPY 2006 PNEUMOCOCCAL VACCINES (50+ years) (1 of 1 - PCV) 2011 POTASSIUM LEVEL 10/22/2023 10/22/2022, 02/15, 10/10/2018 LIPID PANEL 03/14/2024 03/14/2019 INFLUENZA VACCINE (#1) 2025 09/21/2022 COVID-19 VACCINE ( - season) 2025 10/17/2022, 10/13/2021, 02/09/2021, Additional history exists SCREENING FOR DIABETES 10/22/2025 10/22/2022 SMOKING Hx and SMOKELESS TOBACCO SCREENING 05/04/2026 05/04/2025 COLONOSCOPY 07/11/2029 07/11/2024 COLORECTAL CANCER SCREENING 07/11/2029 Adult Td,Tdap Booster 07/02/2031 07/02/2021 , 02/13/2009, 11/15/2008 RSV VACCINE (1 - 1-dose 75+ series) 02/06/2036 HEPATITIS C SCREENING Completed 03/14/2019 ZOSTER VACCINES Completed 09/21/2022, 09/09/2021 HEPATITIS A VACCINES Aged Out No long er eligible based on patient's age to complete this topic HIB VACCINES Aged Out No longer eligi ble based on patient's age to complete this topic MENINGOCOCCAL VACCINES (ACWY) Aged Out No longer eligible based on patient's age to complete this topic MENINGOCOCCAL VACCINES (B) Aged Out N o longer eligible based on patient's age to complete this topic Medical Devices Implanted Type Area Photography Colorist Device Identifier Shelf Expiration Date Model / Serial / Lot Implantable Monitor-10/19/20 18 Implanted:10/19 (Quantity not on file) Implantable Monitor [employer] [id number] / [id number] / Procedures Procedure Name Priority Date/Time Associated Diagnosis Comments ENDOSCOPY, COLON 07/11/2024 8:19 AM EDT BASIC METABOLIC PANEL (BMP) Routine 10/22/2022 12:22 PM EST Calculus of gallbladder without cholecystitis without obstruction LIPID PANEL Routine 03/14/2019 8:58 AM EDT Personal history of arthritis Routine general medical examination at a health care facility HEPATITIS C ANTIBODY, QUALITATIVE Routine 03/14/2019 8:58 AM EDT Personal history of arthritis Routine general medical examination at a health care facility from Last 3 Months or Most Recently Relevant to Health Maintenance Results * ENDOSCOPY, COLON (07/11/2024 8:19 AM EDT) Narrative Transcriptions Nikolas Echevarria MD - 07/11/2024 8:19 AM EDT [facility] Patient Name: Madison Schmitt Attending MD:: NIKOLAS ECHEVARRIA MD, , Procedure Date: 07/11/2024 8:19 AM Date of : 1960 Age: 64 Admit Type: Outpatient Gender: Female Room: [place] [address] Referring MD: MEGAN WILLS DO Exam Type: Colonoscopy Indications: High risk colon cancer surveillance: Personalhistory of colonic polyps Medications: Monitored Anesthesia Care Procedure: Informed consent was obtained from the patientafter discussion of the indications, limitations, alternatives, benefits, and risks of the procedure. Risks specifically discussed include but are not limited to medication reactions, missed lesions, bleeding, perforation, or the need for emergent surgery. Throughout the procedure, the patient's blood pressure, pulse, end-tidal CO2, and oxygensaturations were monitored continuously. The Olympus pediatric variable [id number] #3 was introduced through the anus and advanced tothe cecum, identified by appendiceal orifice andileocecal valve. The colonoscopy was performed without difficulty. The patient tolerated the procedurewell. The quality of the bowel preparation was excellent. The quality of the bowel preparation was evaluated using the BBPS ([place] Bowel Preparation Scale)with scores of: Right Colon = 3, Transverse Colon = 3and Left Colon = 3 (entire mucosa seen well with no residual staining, small fragments of stool oropaque liquid). The total BBPS score equals 9. Anatomical landmarks were photographed. Complications: No immediate complications. Estimated blood loss: Minimal. Findings: The perianal and digital rectal examinations were normal. A 4 mm polyp was found in the ascending colon. The polyp was sessile. The polyp was removed with acold snare. Resection and retrieval were complete. A 3 mm polyp was found in the sigmoid colon. Thepolyp was sessile. The polyp was removed with a coldsnare. Resection and retrieval were complete. Internal hemorrhoids were found duringretroflexion. The hemorrhoids were moderate. The exam was otherwise normal throughout theexamined colon. Impression: - One 4 mm polyp in the ascending colon, removedwith a cold snare. Resected and retrieved. - One 3 mm polyp in the sigmoid colon, removed witha cold snare. Resected and retrieved. - Internal hemorrhoids. Recommendation: - Discharge patient to home. - Await pathology results. NIKOLAS ECHEVARRIA MD, 07/11/2024 8:36:36 AM This report has been signed electronically. Number of Addenda: 0 Note Initiated On: 07/11/2024 8:19 AM Procedure Code(s): --- Professional --- 92088, Colonoscopy, flexible; with removal of tumor(s), polyp(s), or other lesion(s) by snare technique --- Technical --- 31422, Colonoscopy, flexible; with removal of tumor(s), polyp(s), or other lesion(s) by snare technique Diagnosis Code(s): --- Professional --- Z86.010, Personal history of colonic polyps D12.2, Benign neoplasm of ascending colon D12.5, Benign neoplasm of sigmoid colon K64.8, Other hemorrhoids --- Technical --- Z86.010, Personal history of colonic polyps D12.2, Benign neoplasm of ascending colon D12.5, Benign neoplasm of sigmoid colon K64.8, Other hemorrhoids CPT copyright 2021 [employer]. All rights reserved. The codes documented in this report are preliminary and upon medical biller/coder reviewmay be revised to meet current compliance requirements. Procedure Date: 07/11/2024 8:19:[address] [place] [address] [id number] us Megan A Bigda DO GI PROCEDURE ORDERABLES Final Re sult * Basic metabolic panel (10/22/2022 12:22 PM EST) SODIUM 138 133 - 146 mmol/L [facility] CHLORIDE 100 96 - 108 mmol/L [facility] POTASSIUM 4.1 3.3 - 5.1 mmol/L [facility] CO2 29 21 - 35 mmol/L [facility] BUN 14 6 - 19 mg/dL [facility] CREATININE 0.80 0.5 - 1.5 mg/dL [facility] GLUCOSE 77 70 - 99 mg/dL [facility] CALCIUM 10.0 8.4 - 10.3 mg/dL [facility] EGFR 84 >59 mL/min/1.7 3m2 [facility] Comment:Estimated glomerular filtration rate calculated using the CKD-EPI refit equation. ANION GAP 13 10 - 20 mmol/L [facility] Blood 10/22/2022 12:2 2 PM EST 10/22/2022 12:27 PM EST Maday Patrick MD LAB BLOOD BKR ORDERABLES F inal Result [address] [address] * Hepatitis C antibody, qualitative (03/14/2019 8:58 AM EDT) HCV Negative Negative [facility] Comment: This is a screening test and should be confirmed with molecular testing Blood 03/14/2019 8:58 AM EDT 03/14/2019 9:12 AM EDT Heather Obrien PA-C LAB BLOOD BKR ORDERABLES Fin al Result Performing Organization Address [facility] Co de Phone Number [address] [address] * (ABNORMAL) Lipid panel (03/14/2019 8:58 AM EDT) HDL 68 mg/dL [facility] Comment: Interpretation <40 mg/dL: Low HDL cholesterol (major risk factor for CHD) Greater than or equal to 60 mg/dL: High HDL cholesterol ( negative risk factor for CHD) HDL - cholesterol is affected by a number of factors, e.g. smoking, excerise, hormones, sex and age. CHOLESTEROL 218 0 - 240 mg/dL [facility] TRIGLYCERIDES 111 30 - 160 mg/dL [facility] LDL 128 50 - 129 mg/dL [facility] Comment: LDL levels in terms of risk for coronary heart disease: <100 mg/dL: Optimal 100-129 mg/dL: Near or above optimal 130-159 mg/dL: Borderline high 160-189 mg/dL: High >190 mg/dL: Very High CARDIAC RISK RATIO 3.2(L) 3.3 - 4.4 C [facility] Blood 03/14/2019 8:58 AM EDT 03/14/2019 9:12 AM EDT Heather Obrien PA-C LAB BLOOD BKR ORDERABLES Fin al Result [facility] [address] [place] [address] from Last 3 Months or Most Recently Relevant to Health Maintenance [place] [address] [place] [address] [employer] [place] [employer] [place] [employer] [address] [place], [place] [address] Advance Directives For more information, please contact: [phone] (9AM - 5PM [place], Wednesday-Wednesday) * Full Code (Latest Code Status on File) Date Activated Date Inactivated Comments 10/29/2022 10:41 AM Question Answer Comments Code Status Confirmed With: Patient * Full Code Date Activated Date Inactivated Comments 10/29/2021 11:15 AM 10/29/2022 10:41 AM Question Answer Comments Code Status Confirmed With: Patient Care Teams Monitoring Engineer Relationship Specialty Start Date End Date Megan Wills DO [address] [place] [address] PCP - General Internal Medicine 09/09/17 Marvin Henderson MD [address] [address] Historical LMR Provider 08/30/17 Additional Source Comments The information contained in this document represents components of the legal health record. It is not the complete legal health record.[facility]
--- OUTSIDE RECORDS SUMMARY | 2025-10-08 09:06 | XMS_ITS | Encounter Summary ---
Author Organization [facility] Address [address] [place] [address] Phone Care Team Providers Care Rework Machine Operator Name Role Phone Wilman Angel DO Unavailable Enzo Alfaro MD Unavailable Marvin Henderson MD Unavailable Irving Whiteside MD Unavailable Arlene Malik KNOWLEDGE MANAGEMENT ADVISOR Unavailable Enrico Nguyen MD Unavailable [phone] Boston Crabtree KNOWLEDGE MANAGEMENT ADVISOR Unavailable [phone] WadsworthChel stout KNOWLEDGE MANAGEMENT ADVISOR Unavailable Trey Ruiz MD Unavailable Wilman Liang MD Unavailable [phone] Wilman Angel DO Primary Care Provider [phone] Encounter Details Date Type Department Care Team (Late st Contact Info) Description 01/08/2020 Ancillary Orders Non-Invasive Cardiology [address] [place] [id number] Azar Coates MD [address] [place] [address] [email or web address] Palpitations Social History Tobacco Use Types Packs/Day [...] DEVICE CHECK: ILR REMOTE INTERROGATION W/TECH REVIEW (01/08/2020 10:39 AM EST) Narrative Azar Coates MD - 01/12/2020 5:51 PM EST Remote interrogation of implantable loop recorder. Reason for implant: Palpitations Tobacco Sweeper: [employer] Symptoms: 0 Pauses: Numerous due to undersensed R waves Bradycardia: 0 Tachycardia: 2 from 01/07 and 01/08, occurred [place] AT/AF: 0 Battery status: ok Additional comments: Device functioning appropriately. Normal device function. Patient to follow-up for continued monitoring every 1 month. Report prepared by Manny Lacey RN Azar Coates MD [facility] ORDER BRITTANY Final Result documented in this encounter Visit Diagnoses Diagnosis Palpitations Palpitations documented in this encounter Care Teams Rework Machine Operator Relationship Specialty Start Date End Date Wilman Angel DO [address] [place] [address] PCP - General Internal Medicine 09/09/17 Wilman Angel DO [address] [place] [address] Historical LMR Provider 08/30/17 11/22/21 Enzo Alfaro MD [address] [place] [address] Historical LMR Provider 08/30/17 11/22/21 Marvin Henderson MD [address] [place] [address] Historical LMR Provider 08/30/17 Irving Whiteside MD [address] [address] [email or web address] Historical LMR Provider 08/30/17 11/22/21 Arlene Malik NP [address] [place] [address] [email or web address] Historical LMR Provider 08/30/17 2 Enrico Nguyen MD [address] [address] Historical LMR Provider 08/30/17 11/22/21 Boston Crabtree NP [address] [place] [phone] Historical LMR Provider 08/30/17 2 Chel Jimenez NP [address] [place] [address] Historical LMR Provider 08/30/17 2 Trey Ruiz MD [address] [place] [address] Historical LMR Provider 08/30/17 2 Wilman Liang MD [address] [address] [email or web address] Historical LMR Provider 08/30/17 11/22/21 documented as of this encounter Additional Source Comments The information contained in this document represents components of the legal health record. It is not the complete legal health record.[facility]
--- OUTSIDE RECORDS SUMMARY | 2025-10-08 09:06 | XMS_ITS | Encounter Summary ---
Author Organization [facility] Address [address] [place] [address] Phone Care Team Providers Care Human Resources Partner Name Role Phone Wilman Angel DO Unavailable Enzo Alfaro MD Unavailable Marvin Henderson MD Unavailable [phone] Irving Whiteside MD Unavailable Arlene Malik ADMINISTRATIVE SUPPORT MANAGER Unavailable Enrico Nguyen MD Unavailable [place] Crabtree ADMINISTRATIVE SUPPORT MANAGER Unavailable DalevilleChel stout ADMINISTRATIVE SUPPORT MANAGER Unavailable Trey Ruiz MD Unavailable Wilman Liang MD Unavailable Wilman Angel DO Primary Care Provider [phone] Encounter Details Date Type Department Care Team (Latest Contact Info) Description 01/18/2020 Transcribe [facility] [address] Floor, [address] [place] [address] Marvin Henderson MD [address] [facility] [address] [place] [address] Palpitations (Primary Dx) Social History Tobacco Use Types [...] as of this encounter Visit Diagnoses Diagnosis Palpitations- Primary documented in this encounter Care Teams Human Resources Partner Relationship Specialty Start Date End Date Wilman Angel DO [address] [place] [address] PCP - General Internal Medicine 09/09/17 Wilman Angel DO [address] [place] [address] Historical LMR Provider 08/30/17 11/22/21 Enzo Alfaro MD [address] [place] [address] Historical LMR Provider 08/30/17 11/22/21 Marvin Henderson MD [address] [place] [address] Historical LMR Provider 08/30/17 Irving Whiteside MD [address] [place] [address] Historical LMR Provider 08/30/17 11/22/21 Arlene Malik NP [address] [place] [address] [email or web address] Historical LMR Provider 08/30/17 2 Enrico Nguyen MD [address] [facility], [address] [place] [address] [email or web address] Historical LMR Provider 08/30/17 11/22/21 Boston Crabtree, ASH [address] [place] [address] [address] [place] [phone] Historical LMR Provider 08/30/17 2 Chel Jimenez NP [address] [place] [address] Historical LMR Provider 08/30/17 2 Trey Ruiz MD [address] [place] [address] Historical LMR Provider 08/30/17 2 Wilman Liang MD [address] [place] [address] [email or web address] Historical LMR Provider 08/30/17 11/22/21 documented as of this encounter Additional Source Comments The information contained in this document represents components of the legal health record. It is not the complete legal health record.[facility]
--- OUTSIDE RECORDS SUMMARY | 2025-10-08 09:06 | XMS_ITS | Encounter Summary ---
Author Organization [facility] Address [address] [place] [address] [address] [place] [address] Phone Care Team Providers Care Hogshead Mat Assembler Name Role Phone Wilman Angel DO Unavailable Enzo Alfaro MD Unavailable Marvin Henderson MD Unavailable Irving Whiteside MD Unavailable Arlene Malik SUPERVISOR STENO POOL Unavailable Enrico Nguyen MD Unavailable [phone] Boston Crabtree SUPERVISOR STENO POOL Unavailable CummingtonChel stout SUPERVISOR STENO POOL Unavailable Trey Ruiz MD Unavailable Wilman Liang MD Unavailable [phone] Wilman Angel DO Primary Care Provider Encounter Details Date Type Department Care Team (Latest Contact Info) Description 09/22/2021 Transcribe [facility] [address]rd Floor, [address] [place] [address] Chinyere Resendez MD 30 [place] [address] [email or web address] SSS (sick sinus syndrome) (Primary Dx) Social History Tobacco Use Types [...] as of this encounter Visit Diagnoses Diagnosis SSS (sick sinus syndrome)- Primary Sinoatrial node dysfunction documented in this encounter Care Teams Hogshead Mat Assembler Relationship Specialty Start Date End Date Wilman Angel DO 179 [place] [address] PCP - General Internal Medicine 09/09/17 Wilman Angel DO [address] [place] [address] Historical LMR Provider 08/30/17 11/22/21 Enzo Alfaro MD [address] [place] [address] Historical LMR Provider 08/30/17 11/22/21 Marvin Henderson MD [address] [place] [address] Historical LMR Provider 08/30/17 Irving Whiteside MD [address] [place] [address] Historical LMR Provider 08/30/17 11/22/21 Arlene Malik NP [address] [place] [address] [email or web address] Historical LMR Provider 08/30/17 2 Enrico Nguyen MD 22 [facility] [address] [place] [address] [email or web address] Historical LMR Provider 08/30/17 11/22/21 Boston Crabtree, ASH [address] [place] [address] 2[address] [place] [address] Historical LMR Provider 08/30/17 2 Chel Jimenez NP [address] [place] [address] Historical LMR Provider 08/30/17 2 Trey Ruiz MD 41 [place] [address] Historical LMR Provider 08/30/17 2 Wilman Liang MD [address] [place] [address] [email or web address] Historical LMR Provider 08/30/17 11/22/21 documented as of this encounter Additional Source Comments The information contained in this document represents components of the legal health record. It is not the complete legal health record.[facility]
--- OUTSIDE RECORDS SUMMARY | 2025-10-08 09:07 | XMS_ITS | Encounter Summary ---
Author Organization [facility] Address [address] [place] [address] Phone Care Team Providers Care Business Systems Administrator Name Role Phone Wilman Angel DO Unavailable Enzo Alfaro MD Unavailable Marvin Henderson MD Unavailable Irving Whiteside MD Unavailable Arlene Malik SHAPE CARVER Unavailable Enrico Nguyen MD Unavailable [phone] Boston Crabtree SHAPE CARVER Unavailable OntarioChel stout SHAPE CARVER Unavailable Trey Ruiz MD Unavailable Wilman Liang MD Unavailable [phone] Wilman Angel DO Primary Care Provider Encounter Details Date Type Department Care Team (Late st Contact Info) Description 03/18/2021 Ancillary Orders Non-Invasive Cardiology [address] [place] [address] Chinyere Resendez MD 30 [place] [address] [email or web address] Cryptogenic stroke Social History Tobacco Use Types Packs/Day Years [...] this encounter Results * DEVICE CHECK: ILR IN-HOME INTERROGATION (03/18/2021 11:52 AM EDT) Narrative Chinyere Resendez MD - 03/19/2021 4:53 PM EDT Remote interrogation of implantable loop recorder since last report. 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 Normal device function. Patient to follow-up for continued monitoring every 1 month. Report prepared by Manny Lacey RN us Chinyere Resendez MD CV CARDIAC SERVICES ORDER BRITTANY Final Result documented in this encounter Visit Diagnoses Diagnosis Cryptogenic stroke Cryptogenic stroke documented in this encounter Care Teams Business Systems Administrator Relationship Specialty Start Date End Date Wilman Angel DO 179 [place] [address] PCP - General Internal Medicine 09/09/17 Wilman Angel DO 179 [place] [address] Historical LMR Provider 08/30/17 11/22/21 Enzo Alfaro MD [address] [place] [address] Historical LMR Provider 08/30/17 11/22/21 Marvin Henderson MD [address] [address] Historical LMR Provider 08/30/17 Irving Whiteside MD [address] [address] Historical LMR Provider 08/30/17 11/22/21 Arlene Malik NP [address] [place] [address] [email or web address] Historical LMR Provider 08/30/17 2 Enrico Nguyen MD [address] [address] Historical LMR Provider 08/30/17 11/22/21 Boston Crabtree NP [address] [place] [phone] Historical LMR Provider 08/30/17 2 Chel Jimenez NP [address] [place] [address] Historical LMR Provider 08/30/17 2 Trey Ruiz MD [address] [place] [address] Historical LMR Provider 08/30/17 2 Wilman Liang MD [address] [place] [address] [email or web address] Historical LMR Provider 08/30/17 11/22/21 documented as of this encounter Additional Source Comments The information contained in this document represents components of the legal health record. It is not the complete legal health record.[facility]
--- OUTSIDE RECORDS SUMMARY | 2025-10-08 09:07 | XMS_ITS | Encounter Summary ---
Author Organization [facility] Address [address] [place] [address] [address] [place] [address] Phone Care Team Providers Care Personal Computer Network Engineer Name Role Phone Wilman Angel DO Unavailable Enzo Alfaro MD Unavailable Marvin Henderson MD Unavailable Irving Whiteside MD Unavailable Arlene Malik ISOTOPE TECHNICIAN Unavailable Enrico Nguyen MD Unavailable [phone] Boston Crabtree ISOTOPE TECHNICIAN Unavailable DarlingtonChel stout ISOTOPE TECHNICIAN Unavailable Trey Ruiz MD Unavailable Wilman Liang MD Unavailable [phone] Wilman Angel DO Primary Care Provider Encounter Details Date Type Department Care Team (Late st Contact Info) Description 03/18/2021 Ancillary Orders [facility] [address] Floor, [address] [place] [address] Chinyere Resendez MD 30 [place] [address] [email or web address] Social History Tobacco Use Types Packs/Day Years [...] on filedocumented in this encounter Care Teams Personal Computer Network Engineer Relationship Specialty Start Date End Date Wilman Angel DO 179 [place] [address] PCP - General Internal Medicine 09/09/17 Wilman Angel DO 179 [place] [address] Historical LMR Provider 08/30/17 11/22/21 Enzo Alfaro MD [address] [place] [address] Historical LMR Provider 08/30/17 11/22/21 Marvin Henderson MD [address] [place] [address] Historical LMR Provider 08/30/17 Irving Whiteside MD [address] [place] [address] Historical LMR Provider 08/30/17 11/22/21 Arlene Malik NP [address] [place] [address] [email or web address] Historical LMR Provider 08/30/17 2 Enrico Nguyen MD [address] [address] [email or web address] Historical LMR Provider 08/30/17 11/22/21 Boston Crabtree, ASH [address] [place] [address] 2[address] [place] [address] Historical LMR Provider 08/30/17 2 Chel Jimenez NP [address] [place] [address] Historical LMR Provider 08/30/17 2 Trey Ruiz MD [address] [place] [address] Historical LMR Provider 08/30/17 2 Wilman Liang MD [address] [place] [address] [email or web address] Historical LMR Provider 08/30/17 11/22/21 documented as of this encounter Additional Source Comments The information contained in this document represents components of the legal health record. It is not the complete legal health record.[facility]
--- OUTSIDE RECORDS SUMMARY | 2025-10-08 09:07 | XMS_ITS | Encounter Summary ---
Author Organization [facility] Address [address] [place] [address] [place] [address] Phone Care Team Providers Care Assistance Coordinator Name Role Phone Wilman Angel DO Unavailable Enzo Alfaro MD Unavailable Marvin Henderson MD Unavailable Irving Whiteside MD Unavailable Arlene Malik COMMUNICATION SKILLS INSTRUCTOR Unavailable Enrico Nguyen MD Unavailable [phone] Boston Crabtree COMMUNICATION SKILLS INSTRUCTOR Unavailable BlackChel stout COMMUNICATION SKILLS INSTRUCTOR Unavailable Trey Ruiz MD Unavailable Wilman Liang MD Unavailable [phone] Wilman Angel DO Primary Care Provider [phone] Encounter Details Date Type Department Care Team (Late st Contact Info) Description 10/03/2021 Procedure Pass [facility] Cardiovascular And Interventional Radiology 30 [place] [address] Social History Tobacco Use Types Packs/Day Years Used Date Smoking Tobacco: Former Cigarettes Q uit: 02/10/1983 Smokeless Tobacco: Never Alcohol Use Standard Drinks/Week Comments Yes 0 (1 standard drink = 0.6 oz pur e alcohol) 1-2/week Comments No Sex and Gender Information Value Date Recorded Sex Assigned at Female 04/25/2025 8:20 PM EDT Legal Sex Female 5:42 PM EST Gender Identity Female 04/25/2025 8:20 PM EDT Sexual Orientation Not on file documented as of this encounter Plan of Treatment Not on file documented as of this encounter Visit Diagnoses Not on filedocumented in this encounter Care Teams Assistance Coordinator Relationship Specialty Start Date End Date Wilman Angel DO 179 [facility] [place] [address] PCP - General Internal Medicine 09/09/17 Wilman Angel DO [address] [facility] [place] [address] [email or web address] Historical LMR Provider 08/30/17 11/22/21 Enzo Alfaro MD [address] [place] [address] Historical LMR Provider 08/30/17 11/22/21 Marvin Henderson MD [address] [place] [address] Historical LMR Provider 08/30/17 Irving Whiteside MD [address] [place] [address] [email or web address] Historical LMR Provider 08/30/17 11/22/21 Arlene Malik NP [address] [place] [address] [email or web address] Historical LMR Provider 08/30/17 2 Enrico Nguyen MD [address] [place] [address] [email or web address] Historical LMR Provider 08/30/17 11/22/21 Boston Crabtree NP [address] [place] [address] [address] Historical LMR Provider 08/30/17 2 Chel Jimenez NP [address] [place] [address] Historical LMR Provider 08/30/17 2 Trey Ruiz MD [address] [place] [address] Historical LMR Provider 08/30/17 2 Wilman Liang MD [address] [place] [address] [email or web address] Historical LMR Provider 08/30/17 11/22/21 documented as of this encounter Additional Source Comments The information contained in this document represents components of the legal health record. It is not the complete legal health record.[facility]
--- OUTSIDE RECORDS SUMMARY | 2025-10-08 09:07 | XMS_ITS | Encounter Summary ---
Author Organization [facility] Address [address] [place] [address] [place] [address] Phone Care Team Providers Care Video Camera Operator Name Role Phone Marvin Henderson MD Unavailable [phone] Wilman Angel DO Primary Care Provider Encounter Details Date Type Department Care Team (Late st Contact Info) Description 10/29/2022 Procedure Pass [place] Admitting Dept - Virtual Department [address] [place] [address] Social History Tobacco Use Types Packs/Day Years Used Date Smoking Tobacco: Former Cigarettes Q uit: 02/10/1983 Smokeless Tobacco: Never Alcohol Use Standard Drinks/Week Comments Yes 0 (1 standard drink = 0.6 oz pur e alcohol) 1-2/week, hard cider at most Comments No Sex and Gender Information Value Date Recorded Sex Assigned at Female 04/25/2025 8:20 PM EDT Legal Sex Female 5:42 PM EST Gender Identity Female 04/25/2025 8:20 PM EDT Sexual Orientation Not on file 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 It is not the complete legal health record.[facility]
--- OUTSIDE RECORDS SUMMARY | 2025-10-08 09:07 | XMS_ITS | Encounter Summary ---
Author Organization [facility] Address [address] [place] [address] [place] [address] Phone Care Team Providers Care Delivery Motorcycle Driver Name Role Phone Wilman Angel DO Unavailable Enzo Alfaro MD Unavailable Marvin Henderson MD Unavailable Irving Whiteside MD Unavailable Arlene Malik DISHING MACHINE OPERATOR Unavailable Enrico Nguyen MD Unavailable [phone] Boston Crabtree DISHING MACHINE OPERATOR Unavailable MillbraeChel stout DISHING MACHINE OPERATOR Unavailable Trey Ruiz MD Unavailable Wilman Liang MD Unavailable [phone] Wilman Angel DO Primary Care Provider [phone] Encounter Details Date Type Department Care Team (Late st Contact Info) Description 10/29/2021 Procedure Pass [facility] Cardiovascular And Interventional Radiology [address] [place] [address] Social History Tobacco Use Types Packs/Day Years [...] on filedocumented in this encounter Care Teams Delivery Motorcycle Driver Relationship Specialty Start Date End Date Wilman Angel DO [address] [facility] [place] [address] PCP - General Internal Medicine 09/09/17 Wilman Angel DO [address] [place] [address] [email or web address] Historical LMR Provider 08/30/17 11/22/21 Enzo Alfaro MD [address] [place] [address] Historical LMR Provider 08/30/17 11/22/21 Marvin Henderson MD [address] [place] [address] Historical LMR Provider 08/30/17 Irving Whiteside MD [address] [place] [address] [email or web address] Historical LMR Provider 08/30/17 11/22/21 Arlene Malik NP [address] [place] [address] [email or web address] Historical LMR Provider 08/30/17 2 Enrico Nguyen MD [address] [place] [address] [email or web address] Historical LMR Provider 08/30/17 11/22/21 Boston Crabtree NP [address] [place] [address] [address] Historical LMR Provider 08/30/17 2 Chel Jimenez NP [address] [place] [address] Historical LMR Provider 08/30/17 2 Trey Ruiz MD [address] [place] [address] Historical LMR Provider 08/30/17 2 Wilman Liang MD [address] [place] [address] [email or web address] Historical LMR Provider 08/30/17 11/22/21 documented as of this encounter Additional Source Comments The information contained in this document represents components of the legal health record. It is not the complete legal health record.[facility]
--- OUTSIDE RECORDS SUMMARY | 2025-10-08 09:07 | XMS_ITS | Encounter Summary ---
Author Organization [facility] Address [address] [place] [address] [place] [address] Phone Care Team Providers Care Pbx Teacher Name Role Phone Wilman Angel DO Unavailable Enzo Alfaro MD Unavailable Marvin Henderson MD Unavailable [phone] Irving Whiteside MD Unavailable Arlene Malik AWNING SPREADER Unavailable [phone] Enrico Nguyen MD Unavailable [phone] Boston Crabtree AWNING SPREADER Unavailable [place]Chel stout AWNING SPREADER Unavailable Trey Ruiz MD Unavailable Wilman Liang MD Unavailable [phone] Wilman Angel DO Primary Care Provider [phone] Encounter Details Date Type Department Care Team (Late st Contact Info) Description 09/19/2020 Procedure Pass Non-Invasive Cardiology [address] [place] [address] Social History Tobacco Use Types [...] on filedocumented in this encounter Care Teams Pbx Teacher Relationship Specialty Start Date End Date Wilman Angel DO [address] [place] [address] PCP - General Internal Medicine 09/09/17 Wilman Angel DO [address] [place] [address] [email or web address] Historical LMR Provider 08/30/17 11/22/21 Enzo Alfaro MD [address] [place] [address] Historical LMR Provider 08/30/17 11/22/21 Marvin Henderson MD [address] [place] [address] Historical LMR Provider 08/30/17 Irving Whiteside MD [address] [place] [address] Historical LMR Provider 08/30/17 11/22/21 Arlene Malik NP [address] [place] [address] [email or web address] Historical LMR Provider 08/30/17 2 Enrico Nguyen MD [address] [place] [address] [email or web address] Historical LMR Provider 08/30/17 11/22/21 Boston Crabtree NP [address] [place] [address] [address] Historical LMR Provider 08/30/17 2 Chel Jimenez NP [address] [place] [address] Historical LMR Provider 08/30/17 2 Trey Ruiz MD [address] [place] [address] Historical LMR Provider 08/30/17 2 Wilman Liang MD [address] [place] [address] [email or web address] Historical LMR Provider 08/30/17 11/22/21 documented as of this encounter Additional Source Comments The information contained in this document represents components of the legal health record. It is not the complete legal health record.[facility]
--- OUTSIDE RECORDS SUMMARY | 2025-10-08 09:07 | XMS_ITS | Encounter Summary ---
Author Organization [facility] Address [address] [place] [address] [place] [address] Phone Care Team Providers Care Wearing Apparel Folder Name Role Phone Wilman Angel DO Unavailable Enzo Alfaro MD Unavailable Marvin Henderson MD Unavailable Irving Whiteside MD Unavailable Arlene Malik TILE AND MOTTLE SUPERVISOR Unavailable [phone] Enrico Nguyen MD Unavailable [phone] Boston Crabtree TILE AND MOTTLE SUPERVISOR Unavailable [place]iaChel stout TILE AND MOTTLE SUPERVISOR Unavailable Trey Ruiz MD Unavailable Wilman Liang MD Unavailable [phone] Wilman Angel DO Primary Care Provider [phone] Encounter Details Date Type Department Care Team (Late st Contact Info) Description 07/22/2021 Procedure Pass Non-Invasive Cardiology [address] [place] [address] Social History Tobacco Use Types [...] on filedocumented in this encounter Care Teams Wearing Apparel Folder Relationship Specialty Start Date End Date Wilman Angel DO [address] [facility] [place] [address] PCP - General Internal Medicine 09/09/17 Wilman Angel DO [address] [facility] [place] [address] [email or web address] Historical LMR Provider 08/30/17 11/22/21 Enzo Alfaro MD [address] [place] [address] Historical LMR Provider 08/30/17 11/22/21 Marvin Henderson MD [address] [place] [address] Historical LMR Provider 08/30/17 Irving Whiteside MD [address] [place] [address] Historical LMR Provider 08/30/17 11/22/21 Arlene Malik NP [address] [place] [address] [email or web address] Historical LMR Provider 08/30/17 2 Enrico Nguyen MD [address] [place] [address] [email or web address] Historical LMR Provider 08/30/17 11/22/21 Boston Crabtree NP [address] [place] [address] [address] Historical LMR Provider 08/30/17 2 Chel Jimenez NP [address] [place] [address] Historical LMR Provider 08/30/17 2 Trey Ruiz MD [address] [place] [address] Historical LMR Provider 08/30/17 2 Wilman Liang MD [address] [place] [address] [email or web address] Historical LMR Provider 08/30/17 11/22/21 documented as of this encounter Additional Source Comments The information contained in this document represents components of the legal health record. It is not the complete legal health record.[facility]
--- OUTSIDE RECORDS SUMMARY | 2025-10-08 09:07 | XMS_ITS | Encounter Summary ---
Author Organization [facility] Address [address] [place] [phone] Phone Care Team Providers Care Technical Staff Assistant Name Role Phone Wilman Angel DO Unavailable Enzo Alfaro MD Unavailable Marvin Henderson MD Unavailable Irving Whiteside MD Unavailable Arlene Malik HIGHWAY MAINTENANCE TECHNICIAN Unavailable Enrico Nguyen MD Unavailable [phone] MAINTENANCE TECHNICIAN Unavailable ClutierChel stout HIGHWAY MAINTENANCE TECHNICIAN Unavailable Trey Ruiz MD Unavailable Wilman Liang MD Unavailable [phone] Wilman Angel DO Primary Care Provider Encounter Details Date Type Department Care Team (Late st Contact Info) Description 07/22/2021 Ancillary Orders Non-Invasive Cardiology [address] [place] [address] Chinyere Resendez MD 30 [facility] [place] [address] [email or web address] Palpitations Social History Tobacco Use Types Packs/Day [...] Results * DEVICE CHECK: ILR IN-HOME INTERROGATION (07/22/2021 9:54 AM EDT) Narrative Chinyere Resendez MD - 07/27/2021 2:54 PM EDT Remote interrogation of implantable loop recorder. 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 Normal device function. Patient to follow-up for continued monitoring every 1 month. Report prepared by Manny Lacey RN us Chinyere Resendez MD CV CARDIAC SERVICES ORDER BRITTANY Final Result documented in this encounter Visit Diagnoses Diagnosis Palpitations Palpitations documented in this encounter Care Teams Technical Staff Assistant Relationship Specialty Start Date End Date Wilman Angel DO [address] [place] [address] PCP - General Internal Medicine 09/09/17 Wilman Angel DO [address] [place] [address] Historical LMR Provider 08/30/17 11/22/21 Enzo Alfaro MD [address] [place] [address] Historical LMR Provider 08/30/17 11/22/21 Marvin Henderson MD [address] [address] Historical LMR Provider 08/30/17 Irving Whiteside MD [address] [address] Historical LMR Provider 08/30/17 11/22/21 Arlene Malik NP [address] [place] [address] [email or web address] Historical LMR Provider 08/30/17 2 Enrico Nguyen MD [address] [address] Historical LMR Provider 08/30/17 11/22/21 Boston Crabtree NP [address] [place] [address] [phone] Historical LMR Provider 08/30/17 2 Chel Jimenez NP [address] [place] [address] Historical LMR Provider 08/30/17 2 Trey Ruiz MD [address] [place] [address] Historical LMR Provider 08/30/17 2 Wilman Liang MD [address] [place] [address] [email or web address] Historical LMR Provider 08/30/17 11/22/21 documented as of this encounter Additional Source Comments The information contained in this document represents components of the legal health record. It is not the complete legal health record.[facility]
--- OUTSIDE RECORDS SUMMARY | 2025-10-08 09:07 | XMS_ITS | Encounter Summary ---
Author Organization [facility] Address [address] [place] [address] Phone Care Team Providers Care Vineyard Worker Name Role Phone Wilman Angel DO Unavailable Enzo Alfaro MD Unavailable Marvin Henderson MD Unavailable Irving Whiteside MD Unavailable Arlene Malik CIGARETTE MAKING MACHINE HOPPER FEEDER Unavailable Enrico Nguyen MD Unavailable [phone] Boston Crabtree CIGARETTE MAKING MACHINE HOPPER FEEDER Unavailable CarmelChel stout CIGARETTE MAKING MACHINE HOPPER FEEDER Unavailable Trey Ruiz MD Unavailable Wilman Liang MD Unavailable [phone] Wilman Angel DO Primary Care Provider [phone] Encounter Details Date Type Department Care Team (Late st Contact Info) Description 09/19/2020 Ancillary Orders Non-Invasive Cardiology [address] [place] [id number] Azar Coates MD [address] [place] [address] [email or web address] Palpitations Social History Tobacco Use Types Packs/Day [...] as of this encounter Visit Diagnoses Diagnosis Palpitations documented in this encounter Care Teams Vineyard Worker Relationship Specialty Start Date End Date Wilman Angel DO [address] [place] [address] PCP - General Internal Medicine 09/09/17 Wilman Angel DO [address] [place] [address] Historical LMR Provider 08/30/17 11/22/21 Enzo Alfaro MD [address] [place] [address] Historical LMR Provider 08/30/17 11/22/21 Marvin Henderson MD [address] [place] [address] Historical LMR Provider 08/30/17 Irving Whiteside MD [address] [place] [address] Historical LMR Provider 08/30/17 11/22/21 Arlene Malik NP [address] [place] [address] [email or web address] Historical LMR Provider 08/30/17 2 Enrico Nguyen MD [address] [address] [email or web address] Historical LMR Provider 08/30/17 11/22/21 Boston Crabtree, ASH [address] [place] [address] [address] [place] [address] Historical LMR Provider 08/30/17 2 Chel Jimenez NP [address] [place] [address] Historical LMR Provider 08/30/17 2 Trey Ruiz MD [address] [place] [address] Historical LMR Provider 08/30/17 2 Wilman Liang MD [address] [place] [address] [email or web address] Historical LMR Provider 08/30/17 11/22/21 documented as of this encounter Additional Source Comments The information contained in this document represents components of the legal health record. It is not the complete legal health record.[facility]
--- OUTSIDE RECORDS SUMMARY | 2025-10-08 09:07 | XMS_ITS | Encounter Summary ---
Author Organization [facility] Address [address] [place] [address] [address] [place] [address] Phone Care Team Providers Care Ocean Export Coordinator Name Role Phone Wilman Angel DO Unavailable Enzo Alfaro MD Unavailable Marvin Henderson MD Unavailable Irving Whiteside MD Unavailable Arlene Malik PACKAGE REINSPECTOR Unavailable nErico Nguyen MD Unavailable [phone] Boston Crabtree PACKAGE REINSPECTOR Unavailable HilgerChel stout PACKAGE REINSPECTOR Unavailable Trey Ruiz MD Unavailable Wilman Liang MD Unavailable Wilman Angel DO Primary Care Provider Encounter Details Date Type Department Care Team (Late st Contact Info) Description 07/22/2021 Ancillary Orders [facility] [address], [address] [place] [address] Chinyere Resendez MD [address] [place] [address] [email or web address] Social History Tobacco Use Types Packs/Day Years [...] on filedocumented in this encounter Care Teams Ocean Export Coordinator Relationship Specialty Start Date End Date Wilman Angel DO [address] [place] [address] PCP - General Internal Medicine 09/09/17 Wilman Angel DO [address] [place] [address] Historical LMR Provider 08/30/17 11/22/21 Enzo Alfaro MD [address] [place] [address] Historical LMR Provider 08/30/17 11/22/21 Marvin Henderson MD [address] [place] [address] Historical LMR Provider 08/30/17 Irving Whiteside MD [address] [place] [address] Historical LMR Provider 08/30/17 11/22/21 Arlene Malik NP [address] [place] [address] [email or web address] Historical LMR Provider 08/30/17 2 Enrico Nguyen MD [address] [address] [email or web address] Historical LMR Provider 08/30/17 11/22/21 Boston Crabtree, ASH [address] [place] [address] [address] [place] [address] Historical LMR Provider 08/30/17 2 Chel Jimenez NP [address] [place] [address] Historical LMR Provider 08/30/17 2 Trey Ruiz MD [address] [place] [address] Historical LMR Provider 08/30/17 2 Wilman Liang MD [address] [place] [phone] [email or web address] Historical LMR Provider 08/30/17 11/22/21 documented as of this encounter Additional Source Comments The information contained in this document represents components of the legal health record. It is not the complete legal health record.[facility]
[2025-10-08 13:03] LABS: MANUAL DIFF FLAG NO
[2025-10-08 13:14] LABS: Hematocrit 38.6 % (37.0-47.0); Hemoglobin 13.4 g/dl (12.0-16.0); Imm Gran Abs Auto 0.02 X10*3/uL (0.00-0.03); Imm Gran Pct Auto 0.4 % (0.0-0.4); Lymphocytes Absolute Auto 1.9 X10*3/uL (1.2-4.9); Mean Corpuscular HGB Conc 34.7 g/dl (31.0-35.0); Mean Corpuscular Hemoglobin 29.1 pg (27.0-33.0); Mean Corpuscular Volume 83.7 fL (80.0-98.0); NRBC Abs Auto 0.000 X10*3/uL (0.0-0.012); NRBC Pct Auto 0.0 /100WBC (0.0-0.2); Platelet Count 264 X10*3/uL (160-400); Red Blood Count 4.61 X10*6/uL (4.20-5.50); White Blood Count 5.7 X10*3/uL (4.8-10.8)
[2025-10-08 15:48] LABS: Thyroid Stimulating Hormone 2.22 uIU/mL (0.32-4.0)
[2025-10-08 15:57] LABS: Anion Gap 13 (12-20)
[2025-10-08 16:02] LABS: Alanine Aminotransferase 20 U/L (0-31); Albumin Level 4.6 g/dL (3.5-5.0); Alkaline Phosphatase 59 U/L (39-117); Aspartate Amino Transferase 26 U/L (5-31); Blood Urea Nitrogen 14 mg/dL (9-16); Calcium 9.3 mg/dL (8.4-10.2); Carbon Dioxide 25 mmol/L (22-29); Chloride 102 mmol/L (96-108); Cholesterol 191 mg/dL (<200); Estimated Glomerular Filt Rate > 60; HDL Cholesterol 62 mg/dL (>40); Potassium 3.1 mmol/L (3.3-5.1); Sodium 137 mmol/L (135-145); Total Protein 7.3 g/dL (6.5-8.0); Triglycerides 84 mg/dL (<150)
== END 2025-10-08 08:41 | disposition home or self-care (01) ==
LOC: HO.MANLDS 08:40
PROVIDERS: Visit Provider Internal Medicine
DX: I10 Essential (primary) hypertension (principal); E55.9 Vitamin D deficiency, unspecified
CPT/HCPCS: 36415; 80053; 80061; 82306; 84443; 85025